=== PATIENT | male | born 1950 | race Caucasian/White ===

== ENCOUNTER → 2016-12-16 | Day surgery (SDC) | payer MEDICARE, OTHER ==
[~2016-12-16] VITALS: Ht 180.3 cm; Wt 127.3 kg
[~2016-12-16] MED LIST: ASPIRIN EC81 MG PO; GLUCOPHAGE1000 MG PO; HUMALOG100 UNIT/1 SUB-Q; LANTUS (IN100 UNIT/M SUB-Q; MULTI VITAMIN1 EACH PO; PRAVACHOL20 MG PO; PRINIVIL (ZESTRI5 MG PO
--- NOTE | ~2016-12-16 | OR ---
PATIENT'S NAME: BRIGID LOPEZ [facility] AGE: 66 Y [address] ROOM: [place] [id number] LOCATION: [facility] – [place] ADMIT DATE: 12/16/2016 OR/Procedure Report DISCHARGE DATE: FAMILY PHYSICIAN: Betty Chan MD ATTENDING PHYSICIAN: Basil Quintana SURGEON: Basil Quintana MD DOCUMENTATION MANAGER: DATE OF PROCEDURE: 12/16/2016 PREOPERATIVE DIAGNOSIS: Bilateral nephrolithiasis seen with symptomatic left proximal ureteral calculus. POSTOPERATIVE DIAGNOSIS: Bilateral nephrolithiasis seen with symptomatic left proximal ureteral calculus. PROCEDURE PERFORMED: 1. Cystoscopy and left stone manipulation. 2. Left ureteral stent placement. 3. Left extracorporeal shock wave lithotripsy. ANESTHESIA: Sedation. INDICATION: This is a 66-year-old gentleman experiencing his first episode of symptomatic stone disease. He had the acute onset of pain symptoms approximately 36 hours ago. He was seen in the emergency department. He has a 6 to 7 mm stone impacted just below the ureteropelvic junction on the left. He has some smaller, nonobstructing calculi bilaterally. Risk factors would be his morbid obesity and subsequent gastric banding. He has a long-term insulin-dependent diabetic. He has carefully considered options. He is aware of the indications, risks, and benefits of an intervention. He presents at this time for a left ESWL. DESCRIPTION OF PROCEDURE: Having obtained his informed consent, the patient taken first to the cystoscopy suite. He was prepped and draped sterilely and in lithotomy position. IV sedation is administered. The 21-Setswana cystoscope was assembled and guided into the urethra. The course of the urethra was unremarkable. The bladder itself demonstrates no tumors, stones, or foreign bodies. Bladder examination was confirmed with a 70-degree lens. Fluoroscopy was undertaken. I cannot appreciate the smaller upper tract stones. We can definitely see his 6-7 mm stone in the area of the proximal 3rd. In fact, it is just below a dense artifact that is likely related to his gastric banding. I passed a guidewire up the left side. Indeed, this is our stone in the guidewire bounces against that. PATIENT'S NAME: BRIGID LOPEZ [facility] AGE: 66 Y [address] ROOM: [place] [address] LOCATION: [facility] [place] ADMIT DATE: 12/16/2016 OR/Procedure Report DISCHARGE DATE: FAMILY PHYSICIAN: Betty Chan MD ATTENDING PHYSICIAN: Basil Quintana An open-ended catheter was passed to the level of the stone. The patient placed in a Trendelenburg position. Saline irrigation is used to dislodge the stone and irrigated back into the renal pelvis. I then replaced my wire and passed a 4.8 multi-length stent using cystoscopic and fluoroscopic visualization. We have a nice level of placement. The bladder was drained. The patient was now moved to the lithotripsy suite. He was placed on the lithotripsy table. The stone was brought into the second focal point of the ellipsoid. Fragmentation was begun. We started at 14 kV and worked up to a maximum of 24 kV. After 3000 impulses, the stone appeared to be nicely fragmented. The patient tolerated the procedure well. Blood loss was negligible. No specimens were sent. The patient returned to the outpatient recovery, awake and in stable condition. BASIL QUINTANA MD [facility]/modl /[id number] CC: Betty Chan MD d: 12/16/16 1828 t: 12/23/16 1159, OPERATIVE SUMMARY
== END | disposition disaster alternative care site (69) ==
LOC: GSDC 10:45 → GPOC 10:45 → GSDC 10:54 → GPOC 12-17 10:45
PROC: 0T778DZ Dilation of Left Ureter with Intraluminal Device, Via Natural or Artificial Opening Endoscopic (ICD-10-PCS; principal; 2016-12-16)
PROC: 0TF4XZZ Fragmentation in Left Kidney Pelvis, External Approach (ICD-10-PCS; 2016-12-16)
DX: N13.2 Hydronephrosis with renal and ureteral calculous obstruction (principal); E11.9 Type 2 diabetes mellitus without complications; E66.01 Morbid (severe) obesity due to excess calories; Z68.39 Body mass index [BMI] 39.0-39.9, adult; Z90.49 Acquired absence of other specified parts of digestive tract; Z79.4 Long term (current) use of insulin; Z98.890 Other specified postprocedural states
CPT/HCPCS: C1769; C2617; J1956; J2001; J7030

== ENCOUNTER → 2016-12-29 | Outpatient (CLI) | payer MEDICARE, OTHER | END | disposition disaster alternative care site (69) | LOC: GRAD 08:42 | DX: N20.0 Calculus of kidney (principal); Z96.0 Presence of urogenital implants ==

== ENCOUNTER → 2017-01-06 | Day surgery (SDC) | payer MEDICARE, OTHER ==
[~2017-01-06] VITALS: Ht 182.9 cm; Wt 121.1 kg
--- NOTE | ~2017-01-06 | OR ---
PATIENT'S NAME: BRIGID LOPEZ [facility] AGE: 67 Y [address] ROOM: [place] [id number] LOCATION: [facility] [place] ADMIT DATE: 01/06/2017 OR/Procedure Report DISCHARGE DATE: FAMILY PHYSICIAN: Betty Chan MD ATTENDING PHYSICIAN: Basil Quintana SURGEON: Basil Quintana MD FIRE TECHNICIAN: DATE OF PROCEDURE: 01/06/2017 PREOPERATIVE DIAGNOSIS: Bilateral nephrolithiasis, status post left stent placement and initial left extracorporeal shock wave lithotripsy. POSTOPERATIVE DIAGNOSIS: Bilateral nephrolithiasis, status post left stent placement and initial left extracorporeal shock wave lithotripsy. PROCEDURES: 1. Bilateral extracorporeal shock wave lithotripsy. 2. Cystoscopy and stent removal. ANESTHESIA: Sedation. INDICATION: This is a 67-year-old gentleman with bilateral nephrolithiasis. He is morbidly obese with diabetes. His most prominent risk factor is history of weight loss surgery. He has a gastric band. He had presented approximately 3 weeks ago with acute left-sided pain. He had dropped a stone into the proximal ureter. He underwent acute stenting and an initial lithotripsy. He had been seen in followup. He has had a good result, but he has a significant residual fragment on the left. He also has a known 7 to 8- mm stone on the right. He presents at this time for a second-stage lithotripsy on the left as well as an initial lithotripsy on the right. We will also plan on removing his stent. DESCRIPTION OF PROCEDURE: Having obtained his informed consent, the patient was taken to the lithotripsy suite. He was placed on the table. The right- sided stone was brought into the second focal point, the ellipsoid and fragmentation begun. We started at 14 kV and worked up to a maximum of 24 kV. We had nice fragmentation by fluoroscopic monitoring. At 2600 shocks, the patient was repositioned on the table. The remaining fragment on the left is targeted. We started at 16 kV on that side and worked up to a maximum of 22 kV. 1400 additional shocks were administered. He was then prepped and draped. Cystoscopy was undertaken. His stent was grasped and extracted. The patient tolerated the procedure well. Blood loss was negligible. No PATIENT'S NAME: BRIGID LOPEZ [facility] AGE: 67 Y [address] ROOM: [place], [place] [address] LOCATION: [facility] [place] ADMIT DATE: 01/06/2017 OR/Procedure Report DISCHARGE DATE: FAMILY PHYSICIAN: Betty Chan MD ATTENDING PHYSICIAN: Basil Quintana specimens were sent. The patient returned to the outpatient recovery awake and stable condition. BASIL QUINTANA MD [facility]/modl /[id number] CC: Betty Chan MD d: 01/06/17 1636 t: 01/16/17 0915, OPERATIVE SUMMARY
== END ==
LOC: GPOC 01-05 16:00 → GSDC 07:04
PROC: 0TF3XZZ Fragmentation in Right Kidney Pelvis, External Approach (ICD-10-PCS; principal; 2017-01-06)
PROC: 0TF4XZZ Fragmentation in Left Kidney Pelvis, External Approach (ICD-10-PCS; 2017-01-06)
PROC: 0TP98DZ Removal of Intraluminal Device from Ureter, Via Natural or Artificial Opening Endoscopic (ICD-10-PCS; 2017-01-06)
DX: N20.0 Calculus of kidney (principal); I10 Essential (primary) hypertension; E11.9 Type 2 diabetes mellitus without complications; M19.90 Unspecified osteoarthritis, unspecified site; Z98.41 Cataract extraction status, right eye; Z98.42 Cataract extraction status, left eye; Z79.4 Long term (current) use of insulin; Z79.899 Other long term (current) drug therapy; Z79.82 Long term (current) use of aspirin
CPT/HCPCS: J1956; J2001; J7030